=== PATIENT | female | born 1945 | race Caucasian/White ===

== ENCOUNTER 2023-12-04 09:38 | Outpatient (CLI) | payer MEDICARE, BC | END 2023-12-04 23:59 | disposition home or self-care (01) | LOC: RAD 09:38 | PROVIDERS: ATTEND Internal Medicine Interventional Cardiology | DX: G31.9 Degenerative disease of nervous system, unspecified (principal); I73.9 Peripheral vascular disease, unspecified; I65.23 Occlusion and stenosis of bilateral carotid arteries | CPT/HCPCS: 70450 ==